=== PATIENT | female | born 1990 | race Two or more races ===

== ENCOUNTER 2019-06-28 11:48 | Emergency (ER) | payer MEDICAID ==
[~2019-06-28] VITALS: Ht 157.5 cm; Wt 59.0 kg
[2019-06-28 14:00] VITALS: BP 116/61
== END 2019-06-28 15:29 | disposition home or self-care (01) ==
LOC: EDBD 11:48 → ER 11:59
DX: S83.005A Unspecified dislocation of left patella, initial encounter (principal); F17.210 Nicotine dependence, cigarettes, uncomplicated; X58.XXXA Exposure to other specified factors, initial encounter; Y93.89 Activity, other specified; Y92.89 Other specified places as the place of occurrence of the external cause; Y99.8 Other external cause status
CPT/HCPCS: 29505; 73562